=== PATIENT | male | born 1950 | race Caucasian/White ===

== ENCOUNTER → 2017-04-05 | Outpatient (CLI) | payer MEDICARE, BC ==
[~2017-04-05] MED LIST: ALTACE PO; AMLODIPINE BESY10 MG PO; ASPIRIN PO; FORTAMET PO; GLIMEPIRIDE2 MG PO; HCTZ PO; LEVAQUIN PO; LOVASTATIN20 MG PO; METFORMIN PO; PERCOCET10 PO
--- NOTE | ~2017-04-05 | CT137 ---
[facility] A Service [facility] RADIOLOGY TEXT RESULTS PATIENT: CORNELIO MCGUIRE LOCATION: [facility] : 50 UNIT #: [id number] AGE: [address]: Gaurang Zuñiga MD SEX: M ORDER DR: [id number] [facility]. [place], [place] [address] [id number] O MR#: [id number] [facility] #: [id number] NAME: CORNELIO MCGUIRE : 1950 SEX: M STUDY DATE/TIME: 04/05/2017 11:34 UNIT: [facility] ROOM: STUDY DESCRIPTION: CT Lung Screening annual Attending Physician: Gaurang Zuñiga M.D. Referring Physician: Gaurang Zuñiga M.D. Ordering Physician: Gaurang Zuñiga M.D. Primary Care Physician: Gaurang Zuñiga M.D. MEDICAL IMAGING REPORT This report is preliminary unless electronic signature is present EXAM CT lung cancer screening. INDICATION Lung cancer screening. 31 pack-year smoking history. PROCEDURE Unenhanced low-dose CT of the chest performed per lung cancer screening protocol. CTDI 2.6 mGy. Total DLP 103 mGy-cm. This CT exam was performed with one or more of the following radiation dose reduction techniques: automatic exposure control, adjustment of mA and/or kV according to patient size, and iterative reconstruction. COMPARISON 03/09/2016 FINDINGS Emphysema. No suspicious pulmonary nodule. No adenopathy. Ascending thoracic aorta measures 4.2 cm and is unchanged from the prior. Heavy coronary artery calcification. Likely sebaceous cyst overlying the sternum is similar to the prior. Hepatomegaly with steatosis. No acute findings in the included upper abdomen. No aggressive appearing bone lesions. IMPRESSION 1. No suspicious pulmonary nodule. 2. Stable ascending thoracic aortic aneurysmal dilation. 3. Other incidental findings are detailed above. 4. Lung-RADS category 1 negative. Per ACR Lung-RADS recommendation, suggest patient continue with annual low-dose lung cancer screening. [facility] A Service [facility] RADIOLOGY TEXT RESULTS PATIENT: CORNELIO MCGUIRE LOCATION: [facility] : 50 UNIT #: [id number] AGE: [address]: Gaurang Zuñiga MD SEX: M ORDER DR: Dictated by... Kodak Sifuentes M.D. THIS IS AN ELECTRONICALLY VERIFIED REPORT Kodak Sifuentes M.D. at 04/06/2017 2:03 PM TELMA/[place]ton TD: 04/05/2017 16:05 JOB #: [id number] MEDICAL IMAGING REPORT Page 1 of 1 COPY
== END | disposition home or self-care (01) ==
LOC: CCAT 10:19
DX: F17.210 Nicotine dependence, cigarettes, uncomplicated (principal); I71.2 Thoracic aortic aneurysm, without rupture
CPT/HCPCS: G0297